=== PATIENT | female | born 1990 | race Caucasian/White ===

== ENCOUNTER 2019-07-20 02:42 | Observation (INO) | payer MEDICAID, SELFPAY ==
[2019-07-20] VITALS (11 sets, daily range): BP systolic 88–117; BP diastolic 46–81; PULSE 82–127; RESP 16–23; TEMP 36.4–37.6; O2SAT 97–100; BMI 22.4; BMI 23.4
--- NOTE | 2019-07-20 03:26 | CT_ITS ---
STUDY: CT ABDOMEN AND PELVIS WITHOUT CONTRAST REASON FOR EXAM: Female, 29 years old. Right upper quadrant pain today RADIATION DOSAGE (If Supplied By Facility): CTDIvol = ( 9.17 ) mGy, DLP = ( 439.92 ) mGycm TECHNIQUE: Transaxial images were obtained from the dome of the diaphragm to the symphysis pubis without oral contrast, and without intravenous contrast. Sagittal and coronal images were reconstructed. Individualized dose optimization techniques were used for this CT. COMPARISON: None. FINDINGS: The visualized lung bases are unremarkable. The visualized portions of the heart are within normal limits. Normal liver. Normal gallbladder and extrahepatic biliary system. Normal spleen. Normal pancreas. Normal bilateral adrenal glands. Normal right kidney. Normal left kidney. Normal visualized stomach. Normal small intestine. Normal colon. The appendix is visualized and appears normal. Normal abdominal aorta. Normal inferior vena cava. Normal retroperitoneum. Normal urinary bladder. IUD. 3.1 x 1.8 cm left ovary cyst. Normal abdominal wall. Normal osseous structures. CT/Abdomen/Pelvis W IV Cont ONLY IMPRESSION: No evidence of acute intestinal pathology or acute obstructive uropathy. 3.1 x 1.8 cm left ovary cyst. Electronically Signed: Shamir Ramesh MD at 6:38 EDT Tel , Service support ,
--- NOTE | 2019-07-20 03:27 | RAD_ITS ---
STUDY: X-RAY CHEST REASON FOR EXAM: Female, 29 years old. SOB and right-sided pain TECHNIQUE: Single frontal view of the chest. COMPARISON: None. FINDINGS: The lungs are clear and expanded. There is no demonstrated pleural abnormality. Normal size heart. Normal mediastinum and gabriella. Normal visualized pulmonary arteries. Normal visualized aortic arch and descending thoracic aorta. Normal visualized thoracic spine. Normal visualized ribs, clavicles, and shoulders. There is no demonstrated abnormality of the visualized soft tissue structures of the upper abdomen. RAD/Chest 1 View (Portable) IMPRESSION: Normal x-ray examination of the chest. Electronically Signed: Shamir Ramesh MD at 4:02 EDT Tel , Service support ,
--- NOTE | 2019-07-20 03:29 | ED.VIS.GEN ---
History of Present Illness Chief Complaint: Abd Pain Informant: Patient Onset: Today Context: Sudden Onset Timing: Continuous Current Severity: Severe Maximum Severity: Severe Narrative: Patient is a 29-year-old female with history of methamphetamine and heroin abuse presenting with abdominal pain. Patient states that this evening around 9 PM she developed pain in her right upper quadrant. Is been worsening since then. She states it is sharp and constant. It does not radiate. She does not have any associated nausea or vomiting. She states she has had normal bowel habits. Patient states she is never had pain like this before. She denies any fever or chills. Patient did not take anything for pain. She also comments that she has had heavier than normal vaginal bleeding with her menstrual period. She states she went through 3 pads today. She told nursing staff that she had lower abdominal pain yesterday however she did not mention this to me. Patient states that she uses IV meth and heroin daily. She last use earlier today. Patient denies any history of abdominal surgeries. She denies any other complaints at this time. Past Medical History - Allergies and Home Meds Allergies/Adverse Reactions: Allergies No Known Allergies Allergy (Verified 07/20/19 03:34) Primary Care Physician: Cyndi Schreiber MD [Primary Care Provider] - Past Medical History: - - IV drug use, history of kidney infection Surgical History: noncontributory Smoking Status: Never smoker Review of Systems All systems negative except as indicated Gastrointestinal: Reports: Abdominal pain Genitourinary: Reports: - - Vaginal bleeding Physical Exam Vital Signs/Narrative: Vital Signs Temp Pulse Resp BP Pulse Ox 07/20/19 02:43 97.6 F L 118 H 16 94/70 100 Inital Vital Signs reviewed: Yes General: Well nourished, Well developed, Acute Distress - Secondary to pain, crying Head: Normocephalic, Atraumatic Eyes: Perrl, EOMI ENT: No rhinorrhea, Dry mucous membranes Neck: Supple, Nontender, No JVD Cardiovascular: Regular rhythm, No murmurs, Tachycardia Respiratory: No distress, CTA bilaterally, Chest nontender Abdomen: Nondistended, Normal bowel sounds, Tender - Right upper quadrant, Guarding - Voluntary, - - Physical exam is difficult secondary to voluntary guarding : - - No external exam. Blood and purulent discharge noted on internal exam, significant right adnexal tenderness, mild cervical motion tenderness Back: Nontender, Normal Inspection Extremities: Nontender, No edema Skin: Normal color, No rash Neurological: Alert, Oriented x3, Cranial nerves II-XII grossly intact, Normal Strength, Normal Sensation Psychological: Normal affect, Tearful, Agitated Diagnostic/Tx/Re-eval Chest X-Ray - ED: 1 View, Read by ED Physician, Read by Radiologist, No Acute Disease Clinical Impression(s) from Imaging Studies Abdomen/Pelvis CT 07/20/19 03:26 IMPRESSION: No evidence of acute intestinal pathology or acute obstructive uropathy. 3.1 x 1.8 cm left ovary cyst. Electronically Signed: Shamir Ramesh MD at 6:38 EDT Tel , Service support , Chest X-Ray 07/20/19 03:27 IMPRESSION: Normal x-ray examination of the chest. Electronically Signed: Shamir Ramesh MD at 4:02 EDT Tel , Service support , Laboratory Data 07/20/19 07/20/19 07/20/19 04:00 04:00 04:50 WBC 16.9 H RBC 4.35 Hgb 12.2 Hct 38.2 MCV 87.8 MCH 28.0 MCHC 31.9 L RDW Std Deviation 46.0 H RDW Coeff of Joe 14.2 Plt Count 301 MPV 9.9 Immature Gran % (Auto) 0.500 Neut % (Auto) 82.7 H Lymph % (Auto) 9.6 L Catron % (Auto) 4.9 Eos % (Auto) 2.0 Baso % (Auto) 0.3 Absolute Neuts (auto) 14.0 H Absolute Lymphs (auto) 1.62 Nucleated RBC % 0 Sodium 140 Potassium 4.4 Chloride 106 Carbon Dioxide 28.0 Anion Gap 6 BUN 9 Creatinine 0.71 Estim Creat Clear Calc 106.15 Est GFR (MDRD) Af Amer 126 Est GFR (MDRD) Non-Af 104 BUN/Creatinine Ratio 12.7 Glucose 92 Lactic Acid 2.4 H Calcium 8.3 L Total Bilirubin 0.30 Direct Bilirubin 0.07 AST 19 ALT 23 Alkaline Phosphatase 104 Troponin I < 0.015 Total Protein 7.1 Albumin 2.8 L Globulin 4.3 H Lipase 55 L Urine Color Urine Clarity Urine pH Ur Specific Cornelia Urine Protein Urine Glucose (UA) Urine Ketones Urine Occult Blood Urine Nitrite Urine Bilirubin Urine Urobilinogen Ur Leukocyte Esterase Urine RBC Urine WBC Ur Squamous Epith Cells Urine Bacteria Urine Mucus Urine Test 07/20/19 07/20/19 05:25 05:25 WBC RBC Hgb Hct MCV MCH MCHC RDW Std Deviation RDW Coeff of Joe Plt Count MPV Immature Gran % (Auto) Neut % (Auto) Lymph % (Auto) Catron % (Auto) Eos % (Auto) Baso % (Auto) Absolute Neuts (auto) Absolute Lymphs (auto) Nucleated RBC % Sodium Potassium Chloride Carbon Dioxide Anion Gap BUN Creatinine Estim Creat Clear Calc Est GFR (MDRD) Af Amer Est GFR (MDRD) Non-Af BUN/Creatinine Ratio Glucose Lactic Acid Calcium Total Bilirubin Direct Bilirubin AST ALT Alkaline Phosphatase Troponin I Total Protein Albumin Globulin Lipase Urine Color Yellow Urine Clarity Sl. Cloudy Urine pH 7.0 Ur Specific Cornelia 1.015 Urine Protein 15 H Urine Glucose (UA) Normal Urine Ketones 5 H Urine Occult Blood 50 H Urine Nitrite Negative Urine Bilirubin Negative Urine Urobilinogen Normal Ur Leukocyte Esterase 500 H Urine RBC 10-25 SEEN Urine WBC 10-25 SEEN Ur Squamous Epith Cells 10-25 SEEN Urine Bacteria Not Reportable Urine Mucus 2+ Urine Test Negative - Rhythm Strip Rhythm Strip: Sinus Tach Rate: 118 Ectopy: None - EKG Initial EKG Interpretation: - - SVT at a rate of 169 Normal axis T wave inversions in inferior leads, likely demand related No prior EKG available for comparison Follow-up EKG Interpretation: Sinus Tachycardia, - - Repeat EKG after chemical cardioversion Sinus tachycardia rate of 123 Normal axis Reversal T wave inversions in inferior leads Resolution of SVT - Medical Decision Making She is evaluated for acute onset of worsening right upper quadrant abdominal pain. She was couple days ago she did have lower abdominal pain. Patient is tachycardic and mildly hypotensive. Patient does have a delayed in getting IV access and blood work secondary to poor peripheral access. This is likley from her history of IV drug use. Patient does have leukocytosis and elevated lactate. She is given 2 L of IV fluid with no significant improvement of her tachycardia. Patient required multiple dosages of IV morphine and then Dilaudid for pain control. CT of the abdomen pelvis IV contrast does not show any acute process however on pelvic exam patient does have purulent discharge and right adnexal tenderness. This is concerning for tubo-ovarian abscess. Ultrasound was ordered and patient is started empirically on antibiotics to cover for this. Discussed the case with OB on-call, Dr. Schreiber who will come down to evaluate the patient. Urinalysis does show 500 leukoesterase but no bacteria. While this could be urinary tract infection and culture is pending I suspect it is more reactive. While patient is in the ER she does go into SVT. Patient does not respond to vagal maneuvers. She is given 6 mg of IV adenosine and converted back to sinus tachycardia. Patient's troponin is negative x2. Endocarditis is also the differential however does not explain her abdominal pain. One set of blood cultures obtained prior to starting IV antibiotics. Patient will require admission for further evaluation and treatment of her lactic acidosis, persistent tachycardia, intractable abdominal pain as well as suspected tubo-ovarian abscess. - Critical Care Time Critical care time (excluding procedures): 30-74 minutes, Discussing w/Patient &/or Family/Biotech Production Specialist, Discussing w/Consultants, Performing Direct Patient Care at Bedside ED Disposition - Plan for ED Patient: Diagnosis: Tachycardia, Intractable abdominal pain, Leukocytosis, Elevated lactic acid level, SVT (supraventricular tachycardia) Referrals: Cyndi Schreiber MD [Primary Care Provider] -
[2019-07-20] MEDS: Morphine 4 MG/ML Syringe IV (04:19)
[2019-07-20] MEDS: 0.9% Normal Saline 1,000 ML 1000 ML IV (04:20)
[2019-07-20 04:24] LABS: Absolute Lymphocyte Count 1.62 X10^3/uL (0.83-4.51); Basophil# 0.05 X10^3/uL; Basophil% 0.3 % (0-1); Eosinophil# 0.34 X10^3/uL; Hematocrit 38.2 % (37-47); Hemoglobin 12.2 g/dL (12.0-15.0); Lymphocyte # 1.62 X10^3/ul (4.0); Lymphocyte % 9.6 % (19-41); Mean Corp Hgb Conc 31.9 g/dL (32-36); Mean Corpuscular Volume 87.8 fL (81-99); Mean Platelet Vol. 9.9 fl (6.2-12.0); Monocyte# 0.83 X10^3/uL; Monocyte% 4.9 % (0-10); NRBC Flagged by Analyzer 0 % (0-5); Neutrophil # 13.97 X10^3/uL (2.7-7.7); Neutrophil % 82.7 % (47-70); Platelet Count 301 K/mm3 (150-450); RBC Distribution Width CV 14.2 % (11.6-14.6); Red Blood Count 4.35 M/mm3 (4.2-5.4); White Blood Count 16.9 K/mm3 (4.4-11.0)
[2019-07-20 04:58] LABS: AST(SGOT) 19 U/L (15-37); Alanine Aminotransfer ALT/SGPT 23 U/L (13-56); Albumin, Serum 2.8 g/dL (3.2-5.0); Alkaline Phosphatase 104 U/L (45-117); Anion Gap 6 (5-15); BUN 9 mg/dL (7-18); BUN/Creat Ratio 12.7 RATIO (10-20); Bilirubin, Direct 0.07 mg/dL (0.00-0.30); Calcium,Total 8.3 mg/dL (8.5-10.1); Chloride 106 mmol/L (98-107); Creatinine, Serum 0.71 mg/dL (0.55-1.02); EST Glomerular Filtration Rate 104 mL/min (>60); Est Glom Filt Rate - Afr Amer 126 mL/min (>60); Estimated Creatinine Clearance 106.15 ml/min; Globulin 4.3 g/dL (2.2-4.2); Glucose 92 mg/dL (74-106); Lipase 55 U/L (73-393); Potassium 4.4 mmol/L (3.5-5.1); Protein, Total 7.1 g/dL (6.4-8.2); Sodium Level 140 mmol/L (136-145)
[2019-07-20 05:28] LABS: Lactic Acid 2.4 mmol/L (0.4-2.0)
--- NOTE | 2019-07-20 05:30 | ED.RN ---
DR DUVALL NOTIFIED OF LACTIC RESULTS
[2019-07-20 05:48] LABS: Internal QC Validated? YES +Cl - CLEAR BKGD; Pregnancy, Urine Negative Negative
[2019-07-20] MEDS: HYDROmorphone 1 MG/ML Syringe IV ×3 (05:49→11:57)
[2019-07-20 05:51] LABS: Color, Urine Yellow (Yellow); Glucose, Dipstick Normal (Normal); Ketone-Dipstick 5 mg/dl (Negative); Leukocyte Esterase-Dipstick 500 /ul (Negative); Nitrite-Dipstick Negative (Negative); Occult Blood-Urine 50 /ul (Negative); Protein-Dipstick 15 mg/dl (Negative); Specific Gravity, Urine 1.015 (1.002-1.030); Urine Bilirubin Dipstick Negative (Negative); Urine Clarity Sl. Cloudy (Clear); Urine Urobilinogen Normal (Normal)
[2019-07-20 05:53] LABS: Mucous, Urine 2+ /hpf (<or=2+); Red Blood Cells-Urine 10-25 SEEN /hpf (0-5); Squamous Epithelial Cells - UA 10-25 SEEN /hpf (5-10); White Blood Cells 10-25 SEEN /hpf (0-5)
[2019-07-20] MEDS: 0.9% Normal Saline 1,000 ML 999 ML IV (07:14)
[2019-07-20] MEDS: HYDROmorphone 0.5 MG/0.5 ML SYRINGE IV ×3 (07:14→08:48)
[2019-07-20] MEDS: Adenosine 6 MG/2 ML Syringe 12 MG IV (07:33)
--- NOTE | 2019-07-20 07:48 | US_ITS ---
STUDY: ULTRASOUND OF THE FEMALE PELVIS - COMPLETE REASON FOR EXAM: Female, 29 years old. Pelvic pain. Concern for pelvic inflammatory disease. LMP: 07/13/2019. TECHNIQUE: Transvaginal TECHNICAL QUALITY: Adequate. COMPARISON: CT scan of the abdomen of 07/20/2019. FINDINGS: The uterus is anteverted and is in a midline position. The uterus measures 9 x 5.7 x 4.4 cm. Normal uterine cervix. The endometrium measures 3 mm in thickness, and is hyperechoic. There is no demonstrated endometrial mass. There is no demonstrated myometrial mass. I.U.D. - The patient does have an I.U.D. The right ovary is visualized. The right ovary measures 3.8 x 1.1 x 1.2 cm. There is no right ovarian cyst or ovarian mass. There is no visualized right adnexal mass or complex lesion. There is normal arterial and normal venous vascularity. The left ovary is visualized. The left ovary measures 4 x 3.3 x 2.1 cm. There is a cyst in the left ovary measuring about 2.8 x 2.3 x 1.5 cm There is no visualized left adnexal mass or complex lesion. There is normal arterial and normal venous vascularity. There is no fluid in the cul-de-sac. The bladder is not well-distended. There are internal echoes within the bladder which may represent debris. Polycystic ovary disease: No. US/Transvaginal Non- IMPRESSION: 1. Small left ovarian cyst. 2. IUD in place. 3. No pelvic mass is seen. 4. The bladder is not well-distended and difficult to evaluate. Mild debris within the bladder is possible. Electronically Signed: Yoel Fregoso MD at 10:54 EDT Tel , Service support ,
--- NOTE | 2019-07-20 07:49 | EKG12_ITS ---
Test Reason : SVT Blood Pressure : / mmHG Vent. Rate : 169 BPM Atrial Rate : 091 BPM P-R Int : 000 ms QRS Dur : 078 ms QT Int : 260 ms P-R-T Axes : 000 048 -71 degrees QTc Int : [address] & T wave abnormality, consider inferior ischemia Abnormal ECG Confirmed by VENKATA BERGERON, HILARY ([id number]), general expeditor CHARLES GUZMAN ([id number]) on 07/25/2019 10:16:34 AM Referred By: Confirmed By:HILARY HASTINGS MD
--- NOTE | 2019-07-20 07:49 | EKG12_ITS ---
Test Reason : POST SVT Blood Pressure : / mmHG Vent. Rate : 123 BPM Atrial Rate : 123 BPM P-R Int : 150 ms QRS Dur : 082 ms QT Int : 316 ms P-R-T Axes : 051 062 049 degrees QTc Int : 452 ms Sinus tachycardia Otherwise normal ECG Confirmed by VENKATA BERGERON, HILARY ([id number]), avid editor CHARLES GUZMAN ([id number]) on 07/25/2019 10:15:49 AM Referred By: Confirmed By:HILARY HASTINGS MD
[2019-07-20 08:20] LABS: CPK Total, Creatine Kinase 18 U/L (26-192)
[2019-07-20 08:57] LABS: Reflex Lactate? Y
[2019-07-20 09:22] LABS: Chlamydia Trachomatis by PCR POSITIVE (Negative); Neisserai gonorrhoeae by PCR Positive (Negative)
[2019-07-20 09:23] LABS: Probe Check PASS
[2019-07-20 10:44] LABS: Lactic Acid 1.3 mmol/L (0.4-2.0)
--- NOTE | 2019-07-20 10:47 | HP.PCM_ITS ---
History and Physical Date of Admission: 07/20/19 29-year-old 4 para 4 who presents today complaining of acute abdominal pain. She says it started right lower quadrant and started radiating up into her upper quadrant and right mid abdomen. It is constant, she describes it as intense, throbbing, burning, and sharp and stabbing. She is never had anything quite like before. She denies any nausea or vomiting with it. She has not had any change in bowel movements. She has some blood-tinged vaginal discharge. She states she is currently on her menses and has them monthly despite having a Mirena intrauterine system. The Mirena was placed last year the time of her C- section. Patient states she has had unprotected intercourse with 2 partners in the past 6 months. She states that 1 of her partners is a male who has sex with other males. Patient states her vaginal discharge has been non-odorous, white to yellow, and blood-tinged. She denies any vaginal itching or burning. She denies any dyspareunia. Past obstetrical history: 4 previous pregnancies, 3 vaginal deliveries and the last one 1 year ago was a . Gynecological history: Patient has a history of recurrent genital herpes, she denies any other history of sexually transmitted diseases. She states that her last hepatitis, syphilis and HIV screens were all negative. Social history: Significant for daily IV drug use including methamphetamines and heroin it patient states she is been in treatment before, the last time was 1 year ago. Past surgical history: Significant for Laboratory studies and imaging studies reviewed. Positive for gonorrhea and chlamydia today. View of systems: General: Denies fevers or chills, no significant weight changes Resp-slightly short of breath because it is painful to take a deep breath. The pain is in her abdomen. No wheezing or cough. Cardiac: No chest pain or palpitations GI: Patient denies nausea, vomiting, diarrhea or constipation. She denies melena or hematochezia : No hematuria, dysuria or flank pain. Skin: No rashes or new lesions Physical exam: General: Patient is awake, writhing around in bed somewhat, eyes are glossy. Pupils are small. She appears in moderate distress. Lungs: Clear to auscultation, no wheezing Skin: No abscesses, cellulitis, erythema or other lesions noted. Some track dickson on her arm that are not acutely infected abd-some guarding, no rebound, diffusely tender. No masses or hernias appreciated. Extremities: No joint swelling or erythema, no edema of the extremities CALL CENTER DISPATCHER: Normal external genitalia, normal mons pubis, normal hair distribution pattern. Normal perineal body. Normal anal sphincter. Introitus with blood- tinged discharge. Normal urethra out prolapse or carbuncles. Normal Bartholin's and [employer]'s glands areas. Normal labia. Vagina has pink rugae, no significant cystocele or rectocele. There is blood-tinged, thin, nonodorous discharge in the vault and at the cervix. Cervix is smooth, nonfriable and no lesions. IUD strings are noted at the cervical loss. Bimanual exam: Uterus is normal size, midposition, mobile, significant cervical motion tenderness. No adnexal masses appreciated but tender diffusely throughout the lower abdomen. Exam is limited by guarding Assessment and plan: She was seen in the emergency room consultation at the request of the emergency room physician. My findings and plan were discussed with them before she was admitted to the floor. Patient appears to have acute PID. On imaging, there is no evidence of intraperitoneal abscess or tubo-ovarian abscess. Her lactic acid was initially elevated and a repeat level has been drawn. Her white count is elevated. She tested positive for gonorrhea and chlamydia. Will initiate PID antibiotic protocol, admit for pain control and to monitor her vitals and white blood cell count. Will treat empirically for Trichomonas this testing was not done for this. I discussed with the patient risk benefits and alternatives to removal of intrauterine device. Patient states understanding of the reasoning behind this. Would like to initiate control pills for contraception in the interim. Will check syphilis, HIV and hepatitis C as well. She has a history of genital herpes and requests HSV prophylaxis, this is reasonable in the context of her acute infection, would be at increased risk for an outbreak Internal medicine consult requested and I discussed with the hospitalist on-call for management of polysubstance withdrawal. Pain management will likely be challenging. Initiate torodol and acetaminophen. If evidence of sepsis may need transfered to PCU.
--- NOTE | 2019-07-20 10:53 | PCM.HOSP.N ---
Hospitalist Note Hospital service was consulted to assist with heroin and methamphetamine use. When seen patient seen and discussed the reason for involvement in regards to her opiate and methamphetamine use and while she was in the hospital for her pelvic inflammatory disease. Asked patient is she is interested in quitting heroin and she said that she wants to be clean and so that when she is discharged from the hospital that she is clean so that she can get her daughter back from foster care. Diet discussed with the patient about using buprenorphine taper to help her with opiate withdrawal symptoms that she may experience while she is here and for pain I recommended ketorolac and acetaminophen. Patient stated that I would not be treating her pain but I told her that we would be but just utilizing nonnarcotics and the buprenorphine would be used for her withdrawal symptoms. Patient was stating that she does not have a problem with pills and Dilaudid but admits openly that she uses injected heroin daily. I addressed the discrepancy and her statement and stated that those are all narcotics and she is just using heroin instead of pills or hydromorphone. Patient told me to stop being a melia and that she is tired of my bullshit. Became readily apparent that the patient is actually not interested in quitting narcotics even though I specified when I asked her if she was to tell me the truth rather than tell me what she thought I want to hear. With the patient's belligerent, vulgar behavior and obvious lack of desire to quit opiates I do not feel there is any additional recommendations I can provide from medical perspective in regards to her polysubstance abuse. The medical service will be signing off but if other medical needs would warrant being addressed, do not hesitate to consult for those issues. I will sign off. I left a message for Dr. Schreiber on her voicemail.
--- NOTE | 2019-07-20 11:28 | PCM.OPRPT ---
Report of Operation Date of Procedure: 07/20/19 Pre-Operative Diagnosis: PID, IUD in place Post-Operative Diagnosis: same Surgery/Procedure Performed:: removal of IUD stainless steel finisher: None Type of Anesthesia:: None Estimated Blood Loss (mL): 0 Description of Procedure: Risk benefits and alternatives to removal of Mirena IUD were discussed with the patient, questions were answered to her satisfaction she desired to proceed. Nurse was present with me in the room when I did the exam and remove the IUD. Timeout was performed and confirmed. The Mirena strings were grasped with a grasper, and the Mirena was removed easily. It was confirmed to be intact. There is no active bleeding from the cervical loss. Patient tolerated the procedure well. Grafts/Implants Used: 0 - Complications 0
[2019-07-20] MEDS: 0.9% Normal Saline 1,000 ML 50 ML IV (12:29)
[2019-07-20] MEDS: metroNIDAZOLE 500 MG/100 ML BAG 100 MG IV ×2 (14:46→23:18)
[2019-07-20] MEDS: Buprenorphine HCl 2 MG TAB.SUBL 4 MG SL ×2 (15:45→22:25)
[2019-07-20] MEDS: Ketorolac 30 MG/ML Syringe IV ×2 (15:45→22:28)
[2019-07-20] MEDS: Acetaminophen 500 MG Tablet 1000 MG PO ×2 (15:46→22:26)
[2019-07-20] MEDS: Doxycycline 100 MG CAPSULE PO (22:26)
[2019-07-21 02:19] VITALS: BP 84/54; PULSE 64; RESP 16; TEMP 36.3; O2SAT 98
[2019-07-21 04:35] VITALS: BP 92/60; PULSE 70; RESP 16; TEMP 36.3; O2SAT 98
[2019-07-21] MEDS: Buprenorphine HCl 2 MG TAB.SUBL 4 MG SL (06:09)
[2019-07-21] MEDS: metroNIDAZOLE 500 MG/100 ML BAG 100 MG IV (06:10)
[2019-07-21] MEDS: Acetaminophen 500 MG Tablet 1000 MG PO (06:10)
[2019-07-21] MEDS: Ketorolac 30 MG/ML Syringe IV (06:11)
[2019-07-21] MEDS: Enoxaparin 40 MG/0.4 ML Syringe SC (06:14)
[2019-07-21 06:59] LABS: Absolute Lymphocyte Count 2.53 X10^3/uL (0.83-4.51); Absolute Neutrophil Count 4.7 X10^3/uL (2.0-7.7); Basophil# 0.03 X10^3/uL; Basophil% 0.3 % (0-1); Hematocrit 31.5 % (37-47); Hemoglobin 10.1 g/dL (12.0-15.0); Lymphocyte # 2.53 X10^3/ul (4.0); Lymphocyte % 27.9 % (19-41); Mean Corp Hgb Conc 32.1 g/dL (32-36); Mean Corpuscular Hgb 28.1 pg (27.0-32.0); Mean Corpuscular Volume 87.7 fL (81-99); Mean Platelet Vol. 9.5 fl (6.2-12.0); Monocyte# 0.77 X10^3/uL; Monocyte% 8.5 % (0-10); NRBC Flagged by Analyzer 0 % (0-5); Neutrophil # 4.71 X10^3/uL (2.7-7.7); Neutrophil % 52.1 % (47-70); Platelet Count 188 K/mm3 (150-450); RBC Distribution Width CV 14.1 % (11.6-14.6); RBC Distribution Width SD 45.3 fl (35.1-43.9); Red Blood Count 3.59 M/mm3 (4.2-5.4); White Blood Count 9.1 K/mm3 (4.4-11.0)
--- NOTE | 2019-07-21 07:56 | PCM.DC ---
- Discharge Diagnoses Current Active Problems: Current Active and Chronic Problems Tachycardia (Acute) Intractable abdominal pain (Acute) Leukocytosis (Acute) Elevated lactic acid level (Acute) SVT (supraventricular tachycardia) (Acute) You will use the following diet at home:: No restrictions Your food should be the consistency of: Regular Discharge Activity: Return to Normal Activity May resume sexual activity in: 2 weeks Call your doctor if you observe: Fever of 101 or Higher, Uncontrolled pain Additional Instructions: call [facility] for treatment program if desired- [phone] Allergies/Adverse Reactions: Allergies No Known Allergies Allergy (Verified 07/20/19 03:34) Medications to take at Discharge Acyclovir [Zovirax] 400 mg PO BID #7 cap 07/21/19 Doxycycline 100 mg PO BID #14 cap 07/21/19 Ibuprofen [Motrin] 800 mg PO Q8H PRN PRN #30 tab 07/21/19 Naloxone HCl [Narcan] 4 mg NS PRN PRN #1 spray 07/21/19 Norgestimate-Ethinyl Estradiol [Previfem] 1 tab PO DAILY #1 dose.pack 07/21/19 The following prescriptions were given: Doxycycline 100 mg PO BID #14 cap Transmission Status: Received by [facility] Ibuprofen [Motrin] 800 mg PO Q8H PRN PRN #30 tab PRN Reason: Pain Transmission Status: Pending to [facility] Naloxone HCl [Narcan] 4 mg NS PRN PRN #1 spray PRN Reason: overdose Transmission Status: Pending to [facility] Norgestimate-Ethinyl Estradiol [Previfem] 1 tab PO DAILY #1 dose.pack Transmission Status: Received by [facility] Acyclovir [Zovirax] 400 mg PO BID #7 cap Transmission Status: Received by [facility] Primary Care Physician: Cyndi Schreiber MD [Family Provider] - Test Results: Test results from this visit will be discussed in further detail at your follow-up appointment, if applicable. Please Follow Up With: Macy Schreiber MD - call for appointment When: in 1-2 weeks in OFFICE- [facility] [phone]
--- NOTE | 2019-07-21 08:03 | PN.OBGYN_ITS ---
Patient Problems: Active and Suspected Problems Tachycardia (Acute) Intractable abdominal pain (Acute) Leukocytosis (Acute) Elevated lactic acid level (Acute) SVT (supraventricular tachycardia) (Acute) Subjective: Patient seen at bedside, doing well. Patient denies any nausea, vomiting. Patient reports good pain control. Voiding without difficulty tolerating a regular diet. Patient is ready for DC home today. - Physical Exam General: Alert, Oriented x3 Abdomen: Soft, Non Tender, Non-Distended, - - no rebound, no guarding Vital Signs Temp Pulse Resp BP Pulse Ox 97.4 F L 70 16 92/60 98 07/21/19 04:35 07/21/19 04:35 07/21/19 04:35 07/21/19 04:35 07/21/19 04:35 Oxygen Delivery Method Room Air Weight: 63.9 kg Body Mass Index (BMI) 23.4 Intake and Output for Last 24 Hours 07/19/19 07/20/19 07/21/19 23:59 23:59 23:59 Intake Total 3849.99 / 4469.99 1513.33 / 1513.33 Balance 3849.99 / 4469.99 1513.33 / 1513.33 Microbiology Past 72 Hours 07/20/19 07:55 Wet Prep - Final Genital vaginal Laboratory Tests Past 24 Hrs 07/20/19 07/20/19 07/20/19 04:50 04:50 05:25 WBC RBC Hgb Hct MCV MCH MCHC RDW Std Deviation RDW Coeff of Joe Plt Count MPV Immature Gran % (Auto) Neut % (Auto) Lymph % (Auto) [place] % (Auto) Eos % (Auto) Baso % (Auto) Absolute Neuts (auto) Absolute Lymphs (auto) Nucleated RBC % Lactic Acid Total Creatine Kinase Troponin I RPR Pending Chlam trachomat DNA PCR POSITIVE H Hepatitis C Antibody Pending HIV 1&2 Antibody Pending N.gonorrhoeae DNA (PCR) Positive H 07/20/19 07/20/19 07/21/19 07:55 10:07 06:50 WBC 9.1 RBC 3.59 L Hgb 10.1 L Hct 31.5 L MCV 87.7 MCH 28.1 MCHC 32.1 RDW Std Deviation 45.3 H RDW Coeff of Joe 14.1 Plt Count 188 MPV 9.5 Immature Gran % (Auto) 0.200 Neut % (Auto) 52.1 Lymph % (Auto) 27.9 [place] % (Auto) 8.5 Eos % (Auto) 11.0 H Baso % (Auto) 0.3 Absolute Neuts (auto) 4.7 Absolute Lymphs (auto) 2.53 Nucleated RBC % 0 Lactic Acid 1.3 Total Creatine Kinase 18 L Troponin I < 0.015 RPR Chlam trachomat DNA PCR Hepatitis C Antibody HIV 1&2 Antibody N.gonorrhoeae DNA (PCR) Medical Necessity - Tobacco Use Smoking Status: Never smoker Assessment/Plan All Active Problems Tachycardia (Acute) Intractable abdominal pain (Acute) Leukocytosis (Acute) Elevated lactic acid level (Acute) SVT (supraventricular tachycardia) (Acute) 29-year-old female with PID status post removal of her IUD 1) continue doxycycline and acyclovir 2) previfem ordered x 11 refills 3) Narcan ordered 4) [facility] reviewed- and phone number given 5) motrin/tylenol 6) reviewed follow up in [facility] in 1-2 weeks or sooner if pain or fever
[2019-07-21] MEDS: Doxycycline 100 MG CAPSULE PO (09:29)
[2019-07-21] MEDS: NORGESTIMATE-ETHINYL ESTRADIOL 1 DOSE.PACK 1 TABLET PO (09:30)
[2019-07-21] MEDS: Acyclovir 200 MG Capsule 400 MG PO (09:34)
[2019-07-21 09:37] VITALS: BP 94/55; PULSE 76; RESP 16; TEMP 36.4; O2SAT 99
--- NOTE | 2019-07-21 09:39 | CASEMGMT ---
Social Work Note SW reviewed chart. Pt has history of Meth and Heroin abuse and was provided [employer] information. SW attempted to meet with pt. SW explained self and role at [facility]. Pt states I don't want to answer any questions and I don't need anything at discharge. Pt denied talking to this worker. Denise Frazier [employer], [employer]
[2019-07-21 10:35] LABS: HIV - WCH Non-Reactive (Nonreactive)
[2019-07-21 10:43] LABS: Hepatitis C Antibody REACTIVE (Nonreactive)
[2019-07-25 02:37] LABS: Rapid Plasmin Reagin (RPR) NONREACTIVE (NONREACTIVE)
== END 2019-07-21 10:22 | disposition home or self-care (01) ==
LOC: ED 04:39 → MS3 11:32
PROVIDERS: Obstetrics & Gynecology; Admitting Provider Obstetrics & Gynecology; Emergency Provider Emergency Medicine; Visit Provider Obstetrics & Gynecology
DX: N73.9 Female pelvic inflammatory disease, unspecified (principal); Z45.89 Encounter for adjustment and management of other implanted devices; F15.10 Other stimulant abuse, uncomplicated; F11.10 Opioid abuse, uncomplicated; I47.1 Supraventricular tachycardia; Z87.42 Personal history of other diseases of the female genital tract
CPT/HCPCS: 58301; 36415; 71045; 74177; 76830; 80048; 80076; 81001; 81025; 82550; 83605; 83690; 84484; 85025; 86592; 86703; 86803; 87040; 87086; 87088; 87210; 87491; 87521; 87591; 93005; 93976; 96361; 96365; 96366; 96367; 96372; 96375; 96376; 99218; 99285; J7030; J7040; Q9967; A4216; G0378; J0153